=== PATIENT | male | born 1985 | race Caucasian/White ===

== ENCOUNTER 2019-05-16 17:40 | Emergency (ER) | payer OTHER, SELFPAY ==
[2019-05-16 17:43] VITALS: BP 141/85; PULSE 85; RESP 17; TEMP 36.6; O2SAT 96; BMI 28.8
[2019-05-16 17:49] VITALS: BP 141/85; PULSE 86; RESP 16; O2SAT 98
--- NOTE | 2019-05-16 17:58 | CT_ITS ---
STUDY: CT BRAIN WITHOUT CONTRAST REASON FOR EXAM: Male, 33 years old. Trauma RADIATION DOSAGE (If Supplied By Facility): DLP = ( 846.73 ) mGycm TECHNIQUE: Transaxial CT imaging of the brain was performed without administration of intravenous contrast material. Individualized dose optimization techniques were used for this CT. COMPARISON: None. FINDINGS: There is no acute bleed or infarct. There are normal white matter tracts. The ventricles are normal in configuration. There is no hydrocephalus. A left maxillary sinus retention cyst is present. The mastoid air cells are well aerated. There is no skull fracture. CT/Brain/Head without Contrast IMPRESSION: No acute intracranial abnormality. Left maxillary sinus retention cyst. Electronically Signed: Miles Sanchez, at 18:23 EDT Tel , Service support ,
[2019-05-16] MEDS: Diphth,Pertuss(Acell),Tet Vac 0.5 ML Vial IM (18:43)
[2019-05-16 19:02] VITALS: BP 137/88; PULSE 83; RESP 24; O2SAT 99
--- NOTE | 2019-05-16 19:02 | ED.VIS.GEN ---
History of Present Illness Chief Complaint: Head Injury Narrative: Patient presenting secondary to a head injury. Patient reports that he was mowing the yard and there was a close line in his yard that has a metal T-bar with metal loops coming off the bottom of it. He reports that he hit it very forcibly and it actually knocked him out. Patient states that he felt as if he could move his arms and legs for about 30 seconds and went numb from head to toe. Patient is unsure of his last tetanus shot and he suffered a laceration to the crown of his head. Bleeding was controlled with pressure. He only reports a mild headache. Past Medical History - Allergies and Home Meds Allergies/Adverse Reactions: Allergies No Known Allergies Allergy (Verified 05/16/19 17:49) Primary Care Physician: Juan José Mae Jr. [Primary Care Provider] - Past Medical History: None Smoking Status: Never smoker Review of Systems All systems negative except as indicated Skin: Reports: Wounds Neurological: Reports: Parasthesia Physical Exam Vital Signs/Narrative: Vital Signs Temp Pulse Resp BP Pulse Ox 05/16/19 17:49 86 16 141/85 H 98 05/16/19 17:43 97.8 F 85 17 141/85 H 96 General: Well nourished, Well developed, No Acute Distress, - - Airway is patent breath sounds equal bilateral central peripheral pulses 2+ and symmetric GCS 15 out of 15 Head: Normocephalic, - - 1 cm laceration in the central upper portion of the patient's frontal scalp Eyes: Perrl, EOMI ENT: Moist mucous membranes, No rhinorrhea Neck: Supple, Nontender Cardiovascular: Regular rate, Regular rhythm, No murmurs Respiratory: No distress, CTA bilaterally, Chest nontender Abdomen: Soft, Nontender, Nondistended, Normal bowel sounds Back: Nontender, Normal Inspection Extremities: Nontender, No edema Skin: Normal color, No rash Neurological: Alert, Oriented x3, Cranial nerves II-XII grossly intact, Normal Strength, Normal Sensation Psychological: Normal affect, Normal Mood Diagnostic/Tx/Re-eval - Medical Decision Making Patient presented with a head injury and a scalp laceration. CT brain was obtained due to loss of consciousness was found to be negative. Tetanus status was updated. Patient's wound was addressed as noted in the procedure note. Patient was discharged in stable condition. Procedures - Lacerations No standard instances Comment: Wound was copiously irrigated with saline and was scrubbed. It was explored there was no evidence of foreign material. Wound was then approximated using a single skin staple. Patient tolerated this well. ED Disposition - Plan for ED Patient: Disposition: Home or Assisted Living Diagnosis: Scalp laceration, Concussion with loss of consciousness Instructions: CONCUSSION, No Wake Up, LACERATION, Scalp Referrals: Juan José Mae Jr. [Primary Care Provider] - 10-14 Days suture removal
== END 2019-05-16 19:25 | disposition home or self-care (01) ==
PROVIDERS: Emergency Provider Emergency Medicine; Family Provider Family Medicine
DX: S06.0X9A Concussion with loss of consciousness of unspecified duration, initial encounter (principal); S01.01XA Laceration without foreign body of scalp, initial encounter; W22.8XXA Striking against or struck by other objects, initial encounter; Y93.H9 Activity, other involving exterior property and land maintenance, building and construction
CPT/HCPCS: 12001; 70450; 90471; 90715; 99284

== ENCOUNTER 2021-11-26 11:21 | Emergency (ER) | payer OTHER, SELFPAY ==
[2021-11-26 11:21] VITALS: BP 145/108; PULSE 98; RESP 18; TEMP 36.7; O2SAT 98; BMI 26.9
--- NOTE | 2021-11-26 11:39 | EDS_ITS ---
HPI <HONEY Villegas - Last Filed: 11/26/21 11:42> History of Present Illness Chief Complaint: Mental Health Narrative Narrative: 35-year-old male with no significant medical history presents the emergency department with anxiety. Patient states that over the last several months he felt he has been more anxious, he noticed himself feeling tight around people, and he went to his doctor to have something for anxiety. Both of his parents, and 2 siblings are on Prozac, he started Prozac 9 days ago however for the last 4 8 hours, he states that the medication has been messing with his mind. Patient states that he has evil thoughts, of killing himself, this made him nervous and he is here for evaluation. Patient denies any wanting to hurt himself or others, patient states that these thoughts just pop to his head and they scared him, made him anxious and is here for evaluation. Patient has never been on any psychiatric medication before. [facility] <HONEY Villegas - Last Filed: 11/26/21 11:42> [facility] Medical History (Updated 11/26/21 @ 11:36 by Natalie Maldonado) Anxiety Home Medications NK 05/16/19 [History Last Taken Unknown] Allergy/AdvReac Type Severity Reaction Status Date / Time No Known Allergies Allergy Verified 11/26/21 11:25 Social History Smoking Status: Never smoker ROS <HONEY Villegas - Last Filed: 11/26/21 11:42> ROS ED ROS Narrative Constitutional: Negative for fever, chills, weight loss or gain, weakness Eyes: Negative for vision loss, vision change, double vision ENT: Negative for any hearing changes, ringing in the ears, discharge, pain Nose: Negative for any congestion, runny nose, sinus pain, allergies Throat: Negative for any sore throat, swelling, voice changes, Cardiovascular: Negative for any chest pain, tightness, palpitations, racing heartbeat Respiratory: Negative for any cough, sputum production, hemoptysis, shortness of breath, shortness of breath on exertion, Gastrointestinal: Negative for any abdominal pain, nausea, vomiting, diarrhea, constipation, blood in stool, blood in vomit : Negative for any urinary frequency, incontinence, dysuria, retention, blood in urine Muscle skeletal: Negative for any muscle joint pain, stiffness, myalgias, arthralgias, neck pain, back pain Neurological: Negative for any headache, dizziness, syncope, numbness or tingling Skin: Negative for any rashes, lumps, itching, abrasions, lacerations Psychiatric: Negative for any depression,homicidal ideation. Patient states to have had thoughts that pop does head of suicidal ideation, anxiety Hematologic: Negative for any easy bruising, excessive bruising, easy bleeding Allergies: Negative for any eczema, hives, rash EXAM <HONEY Villegas - Last Filed: 11/26/21 11:42> Physical Exam Const Vital Signs: 11/26/21 11:21 Temperature 98.1 F Temperature Source Temporal Pulse Rate 98 Respiratory Rate 18 Blood Pressure 145/108 H Blood Pressure Mean 120 Pulse Ox 98 Oxygen Delivery Method Room Air Positive well nourished and well developed General Appearance ED: well developed HEENT Reports TM's clear and moist mucous membranes Tympanic Membrane ED: Yes TM's clear Eyes PERRL and EOMs intact bilaterally Neck no lymphadenopathy and supple Chest Wall inspection of chest normal and palpation of chest normal Resp normal respiratory effort and clear to auscultation bilaterally Cardio regular rate, regular rhythm and no murmurs GI normal to inspection, nondistended, normoactive bowel sounds, non-tender and non-distended Palpation: soft Extremity normal to inspection Neuro oriented x3 and CN's II-XII intact bilaterally Sensorium / Orientation: alert Motor Exam: strength 5/5 throughout Psych Psych Narrative: Patient does not appear to be anxious, patient does not like these thoughts and has had of suicidal ideation. Patient states that he is not suicidal, he has no indication of acting on these feelings. Patient states that this is from the medicine and he does not want to be on it anymore. Patient is thinking clearly, patient is following commands and acting appropriate. Mood & Affect: anxious Skin no rashes or lesions noted <Dr. Lit Myers MD - Last Filed: 11/26/21 12:08> Physical Exam Const Vital Signs: 11/26/21 11:21 Temperature 98.1 F Temperature Source Temporal Pulse Rate 98 Respiratory Rate 18 Blood Pressure 145/108 H Blood Pressure Mean 120 Pulse Ox 98 Oxygen Delivery Method Room Air <Dr. Lit Myers MD - Last Filed: 11/26/21 12:08> MDM MDM Narrative Medical decision making narrative: I have personally performed a face to face assessment of the patient and have reviewed the ELAINE Note. I performed a substantive portion of the visit including all aspects of the following. My fleming findings include: History is 35-year-old male history of depression on Prozac for the last 9 days. Not feeling any better. Exam is [35-year-old male no distress. Vital signs are stable afebrile. Exam benign.] Medical Decision Making given a p.o. Ativan here. Written for very brief prescription of Ativan and he has an appointment to see the counseling center on Sunday.] Other additions or changes: [None] Discharge Plan Triage Chief Complaint: Mental Health Other Complaint: Anxiety ED Midlevel Provider: Perez Marrero ED Provider: Lit Myers Dx/Rx/DC Orders Prescriptions: No Action NK RF: 0 Primary Care Provider: NOT,DEFINED
[2021-11-26] MEDS: LORazepam 1 MG Tablet PO (11:45)
== END 2021-11-26 12:24 | disposition home or self-care (01) ==
PROVIDERS: Emergency Provider Emergency Medicine; Visit Provider Emergency Medicine
DX: F41.9 Anxiety disorder, unspecified (principal); F32.A Depression, unspecified; Z79.899 Other long term (current) drug therapy; Z81.8 Family history of other mental and behavioral disorders
CPT/HCPCS: 99283